=== PATIENT | female | born 1945 | race Caucasian/White ===

== ENCOUNTER 2020-06-01 10:15 | Day surgery (SDC) | payer MEDICARE, OTHER, SELFPAY ==
--- NOTE | 2020-05-31 18:56 | PM.PREOP ---
Pre-operative Note COVID-19 COVID-19 status: Negative Interval Note History & Physical reviewed/Exam performed by Physician: Yes Changes to H&P: No
--- NOTE | 2020-06-01 08:32 | P.OP_ITS ---
Operative Date/Time/Diagnoses Date of procedure: 06/01/20 Time of procedure: 11:45 Procedure & Clinicians Procedure: Preoperative diagnoses: 1. Complex left advanced posterior subcapsular cortical and nuclear sclerotic cataract need for complex surgery with capsular dye. 2. Astigmatism which is to be corrected with a toric intraocular lens implant. 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 Hypertension Postoperative diagnoses: 1. Cataract removal with phacoemulsification with toric posterior chamber intraocular lens implant placed. Procedure: Complex Phacoemulsification with posterior chamber toric intraocular lens implant and capsular dye. Surgeon: Karissa Alvarez MD Complications: None Specimen: None Implant:[id number]+17.5 axis 100 Blood loss: None Anesthesia: Retrobulbar with monitored standby Description of procedure: Patient presents with a complaint of decreased vision due to cataract which is affecting activities of daily living. She has a mature cataract and has problems both with distance and near vision. She is extra risk to presence of pseudoexfoliation and would like astigmatism correction with a distance target. The patient wants surgery to improve vision and astigmatism. The patient was taken to the operating room and proparacaine drops placed. Indelible ink lucio were placed at the 90 and 180 degree meridian. The patient was placed on the operating room table and given IV sedation. A retrobulbar block insert consisting of 6 cc of 2% xylocaine without epinephrine mixed half and half with 0.5% Marcaine with 1 cc of hyaluronidase added is placed between the medial and lateral 1/3 of the inferior orbital rim. The eye is manually massaged for 30 sec, prepped using Betadine solution, and draped in the usual sterile fashion. Temporal approach was made, a 1 mm side-port incision was made 90? from the proposed corneal wound. Phenylephrine 1.5% mixed with 1% xylocaine 0.2 cc was placed into the anterior chamber. An air bubble was placed followed by Visudyne capsular dye. The excess dye was then irrigated from the eye using BSS. Viscoat followed by Healon was then placed. A 2.6 mm clear incision with a 2.6 mm blade was placed at the 170 degree meridian. A 360 degree capsulorrhexis style capsulotomy was then performed with a cystitome needle on a Healon greatly aided by capsular dye. Hydrodelineation and hydrodissection were performed. The phacoemulsification unit is introduced, and sculpting used to groove the central lens. The zonules were slightly weak but hold intact during the entire procedure. The nucleus was very dense. It is then removed in chopping mode. Epi nucleus is removed with epinuclear mode and irrigation aspiration was used to remove the peripheral cortex. The posterior capsule is polished. There was a small amount of subincisional cortex which was left for after intra-ocular lens insertion for safety. The intraocular lens is selected, inspected, power confirmed, and placed in the posterior chamber at the desired meridian of 100? T he pupil was not constricted. As much cortex as possible was safe that was removed but a small amount was left for safety at the 6 o'clock position. The wound was stromally hydrated and tested for leaks, there was none and it was left sutureless. Vigamox 0.1 cc was placed into the anterior chamber. Kenalog 0.2 cc was placed in the inferior subconjunctival space. A drop of antibiotic and was placed and the eye was patched and shielded. The patient was stable and returned to the recovery room in excellent condition. Dictated by: Karissa Alvarez MD Copy to: [facility] Same procedure as scheduled: Yes
[2020-06-01] MEDS: CATARACT EYE COMPOUND (10 DROPS/SYRINGE) 3 DROPS EYE-OP (10:42)
[2020-06-01] MEDS: PROPARACAINE 0.5% OPHTH SOL 2 DROPS EYE-OP ×2 (10:42→12:34)
[2020-06-01 10:46] VITALS: BP 141/89; PULSE 71; RESP 16; TEMP 36.8; O2SAT 98; BMI 26.6
[2020-06-01] MEDS: LIDOCAINE 2% 4 ML, BUPIVACAINE 0.5% (PF) 4 ML, HYALURONIDASE 150 UNIT INJ (12:16)
[2020-06-01] MEDS: CHONDROIDTIN/SOD HYALURONATE 1.05 ML SYRINGE INTRAOCULA (12:30)
[2020-06-01] MEDS: HYALURONATE SODIUM 10 MG/ML SYRINGE INJ (12:31)
[2020-06-01] MEDS: MOXIFLOXACIN INJ 5 MG/ML VIAL EYE-OP (12:31)
[2020-06-01] MEDS: ERYTHROMYCIN OPHTH 1 GM OINT 1 APPLIC EYE-LEFT (12:31)
[2020-06-01] MEDS: TRYPAN BLUE 0.5 ML SYRINGE INJ (12:32)
[2020-06-01] MEDS: TRIAMCINOLONE 50 MG/5 ML VIAL INJ (12:32)
[2020-06-01] MEDS: PHENYLEPHRINE/LIDOCAINE VIAL (OR) 0.2 ML EYE-OP (12:32)
[2020-06-01] MEDS: BALANCED SALT IRRIG SOLN NO.2 500 ML, EPINEPHrine 1 MG IRR (12:32)
[2020-06-01 13:22] VITALS: BP 138/89; PULSE 62; RESP 17; TEMP 36.7; O2SAT 99
== END 2020-06-01 13:24 | disposition home or self-care (01) ==
LOC: OR 10:21
PROVIDERS: PCP Family Medicine; Referring Provider Ophthalmology; Visit Provider Ophthalmology
PROC: (CPT 66982; principal; 2020-06-01 11:45)
DX: H25.812 Combined forms of age-related cataract, left eye (principal); H26.8 Other specified cataract; H52.202 Unspecified astigmatism, left eye; I10 Essential (primary) hypertension
CPT/HCPCS: 66982; J0171; J2704; J3301; J3470; V2787

== ENCOUNTER 2020-06-22 09:24 | Day surgery (SDC) | payer MEDICARE, OTHER, SELFPAY ==
--- NOTE | 2020-06-21 18:38 | PM.PREOP ---
Pre-operative Note COVID-19 COVID-19 status: Negative Interval Note History & Physical reviewed/Exam performed by Physician: Yes Changes to H&P: No
--- NOTE | 2020-06-21 18:39 | PM.OP.1 ---
Operative Date/Time/Diagnoses Date of procedure: 06/22/20 Time of procedure: 10:45 Procedure & Clinicians Procedure: Preoperative diagnoses: 1.Complex Right Nuclear and sclerotic cataract with need for capsular dye. 2. Astigmatism which is to be corrected with a toric intraocular lens implant. 3. Pseudoexfoliation syndrome which increases surgical risk. 4. Glaucoma suspect Postoperative diagnoses: 1. Cataract removal with phacoemulsification with toric posterior chamber intraocular lens implant placed. Capsular dye used. Procedure: Phacoemulsification with posterior chamber toric intraocular lens implant. Surgeon: Karissa Alvarez MD Complications: None Specimen: None Implant: [id number] [place] 090 Blood loss: None Anesthesia: Retrobulbar with monitored standby Description of procedure: Patient presents with a complaint of decreased vision due to cataract which is affecting activities of daily living for both distance and near. The patient wants surgery to improve vision and astigmatism. She understands the extra risk of surgery during the COVID-19 pandemic and wishes to proceed. She has tested negative for active virus. She has pseudoexfoliation syndrome which can loosen zonules and extra care will be taken during the procedure. Capsular dye was used to enhance safety and improved visibility. The patient was taken to the operating room and proparacaine drops placed. Indelible ink lucio were placed at the 90 and 180 degree meridian. The patient was placed on the operating room table and given IV sedation. A retrobulbar block insert consisting of 6 cc of 2% xylocaine without epinephrine mixed half and half with 0.5% Marcaine with 1 cc of hyaluronidase added is placed between the medial and lateral 1/3 of the inferior orbital rim. The eye is manually massaged for 30 sec, prepped using Betadine solution, and draped in the usual sterile fashion. Temporal approach was made, a 1 mm side-port incision was made 90? from the proposed corneal wound. Phenylephrine 1.5% mixed with 1% xylocaine 0.2 cc was placed into the anterior chamber. An air bubble was placed and then the Visudyne capsular dye was placed into the anterior chamber Viscoat followed by Healon was then placed. A 2.6 mm clear incision with a 2.6 mm blade was placed at the 170 degree meridian. A 360 degree capsulorrhexis style capsulotomy was then performed with a cystitome needle on a Healon aided by the capsular dye. The zonules remained intact. Hydrodelineation and hydrodissection were performed. The phacoemulsification unit is introduced, and sculpting used to groove the central lens. It is then removed in chopping mode. Epi nucleus is removed with epinuclear mode and irrigation aspiration was used to remove the peripheral cortex. The posterior capsule is polished. The intraocular lens is selected, inspected, power confirmed, and placed in the posterior chamber at the desired meridian 90?. A pre-loaded eyHance lens was used. The pupil was not constricted. The wound was stromally hydrated and tested for leaks, there was none and it was left sutureless. Vigamox 0.1 cc was placed into the anterior chamber. Kenalog 0.2 cc was placed in the superior subconjunctival space. A drop of antibiotic and was placed and the eye was patched and shielded. The patient was stable and returned to the recovery room in excellent condition. Dictated by: Karissa Alvarez MD Copy to: [facility] Same procedure as scheduled: Yes
[2020-06-22] MEDS: PROPARACAINE 0.5% OPHTH SOL 2 DROPS EYE-OP (10:23)
[2020-06-22 10:25] VITALS: BMI 26.6
[2020-06-22] MEDS: CATARACT EYE COMPOUND (10 DROPS/SYRINGE) 3 DROPS EYE-OP (10:30)
[2020-06-22 10:33] VITALS: BP 162/99; PULSE 75; RESP 12; TEMP 36.9; O2SAT 98
--- NOTE | 2020-06-22 11:19 | SUR.OPER ---
Supine on eye stretcher, head on extension cradle secured with tape. Arms tucked at sides with blanket. Pillow under knees.
[2020-06-22] MEDS: LIDOCAINE 2% 4 ML, BUPIVACAINE 0.5% (PF) 4 ML, HYALURONIDASE 150 UNIT INJ (11:22)
[2020-06-22] MEDS: TRYPAN BLUE 0.5 ML SYRINGE INJ (11:22)
[2020-06-22] MEDS: ERYTHROMYCIN OPHTH 1 GM OINT 1 APPLIC EYE-RIGHT (11:23)
[2020-06-22] MEDS: CHONDROIDTIN/SOD HYALURONATE 1.05 ML SYRINGE INTRAOCULA (11:23)
[2020-06-22] MEDS: TRIAMCINOLONE 50 MG/5 ML VIAL INJ (11:24)
[2020-06-22] MEDS: HYALURONATE SODIUM 10 MG/ML SYRINGE INJ (11:24)
[2020-06-22] MEDS: PHENYLEPHRINE/LIDOCAINE VIAL (OR) 0.2 ML EYE-OP (11:24)
[2020-06-22] MEDS: MOXIFLOXACIN INJ 5 MG/ML VIAL EYE-OP (11:24)
[2020-06-22] MEDS: BALANCED SALT IRRIG SOLN NO.2 500 ML, EPINEPHrine 1 MG IRR (11:25)
[2020-06-22 11:55] VITALS: BP 145/91; PULSE 61; RESP 13; TEMP 36.4; O2SAT 98
== END 2020-06-22 12:07 | disposition home or self-care (01) ==
LOC: OR 09:28
PROVIDERS: PCP Family Medicine; Referring Provider Ophthalmology; Visit Provider Ophthalmology
PROC: (CPT 66982; principal; 2020-06-22 10:45)
DX: H25.811 Combined forms of age-related cataract, right eye (principal); H52.201 Unspecified astigmatism, right eye; H26.8 Other specified cataract; H40.009 Preglaucoma, unspecified, unspecified eye; I10 Essential (primary) hypertension; E78.00 Pure hypercholesterolemia, unspecified
CPT/HCPCS: 66982; J0171; J2704; J3301; J3470; V2787

== ENCOUNTER → 2021-07-19 13:29 | Outpatient (CLI) | payer MEDICARE, OTHER, SELFPAY ==
--- NOTE | 2021-07-19 | DI.CT.S_ITS ---
PROCEDURE: CT SINUS SCREEN WO CON INDICATIONS: Chronic sphenoidal sinusitis TECHNIQUE: Noncontrast 3.0 mm axial images acquired from the frontal sinuses to the mid-sella, with coronal and sagittal reformats. For radiation dose reduction, the following was used: automated exposure control, adjustment of mA and/or kV according to patient size. COMPARISON: [facility], CT, CT SINUS WITHOUT CONTRAST, 05/24/2021, 11:03. FINDINGS: Image quality: Excellent. Maxillary Sinuses: No bony remodeling or destruction. Sinuses are clear. Ethmoid Air Cells: No bony remodeling or destruction. Sinuses are clear. Sphenoid Sinuses: The previously seen prominent opacification of the left sphenoid sinus has resolved. There is mild mucosal thickening now seen within the right sphenoid sinus, as on series 2, image 20. Frontal Sinuses: No bony remodeling or destruction. Sinuses are clear. Ostiomeatal Complexes: Ostiomeatal complexes are patent, yet they are constitutionally narrowed, with bilateral Tania cells. Miscellaneous: Visualized intra-orbital contents are normal. 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 There is moderate S shaped nasal septal deviation. IMPRESSION: No significant active paranasal sinus disease is now seen. The previously seen prominent opacification of the left sphenoid sinus has resolved. Constitutionally narrowed ostiomeatal complexes. Moderate S shaped nasal septal deviation. 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 Dictated by: Luis Baer M.D. on 07/19/2021 at 13:29 Approved by: Luis Baer M.D. on 07/19/2021 at 13:31
== END ==
PROVIDERS: PCP Family Medicine; Referring Provider Otolaryngology; Visit Provider Otolaryngology
DX: J32.3 Chronic sphenoidal sinusitis (principal); R51.9 Headache, unspecified; J34.2 Deviated nasal septum; J34.3 Hypertrophy of nasal turbinates
CPT/HCPCS: 70486

== ENCOUNTER → 2023-02-05 10:56 | Outpatient (CLI) | payer MEDICARE, OTHER, SELFPAY ==
--- NOTE | 2023-02-05 10:59 | DI.RAD.S_ITS ---
PROCEDURE: XR SACROILIAC JOINT MIN 3V INDICATIONS: Sacrococcygeal disorders, not elsewhere classified TECHNIQUE: 3 views of the sacroiliac joints were acquired. COMPARISON: None. FINDINGS: Bones: No bony erosions or ankylosis. No suspicious bony lesions. No acute fractures. Moderate lower lumbar spondylosis. Degenerative changes of the bilateral sacroiliac joints more pronounced on the right. Partially imaged hardware from bilateral hip arthroplasty. Soft tissues: Overlying bowel gas pattern is normal. No suspicious soft tissue densities. IMPRESSION: No radiographic evidence for sacroiliitis. Lower lumbar spondylosis. Degenerative changes of the bilateral sacroiliac joints. Dictated by: Matthew Street M.D. on 02/05/2023 at 18:48 Approved by: Matthew Street M.D. on 02/05/2023 at 18:50
--- NOTE | 2023-02-05 10:59 | DI.RAD.S_ITS ---
PROCEDURE: XR LUMBAR SPINE MIN 4V INDICATIONS: Sacrococcygeal disorders, not elsewhere classified TECHNIQUE: 5 views of the lumbar spine acquired, including flexion and extension views. COMPARISON: None. FINDINGS: Bones: 5 nonrib-bearing vertebrae are present. There is levo scoliosis of the lumbar spine centered at L3-4. No acute compression fractures. Moderate multilevel lumbar spondylosis with degenerative endplate changes, disc space loss, and prominent endplate osteophytes. Moderate mid and lower lumbar facet arthropathy. Soft tissues: Overlying bowel gas pattern is normal. Oval rim calcified density projects over the inferior right renal shadow. Flexion/extension: There is diminished range of motion, with preserved bony alignment. IMPRESSION: Lumbar spine without acute fracture. Levoscoliosis of the lumbar spine with moderate multilevel lumbar spondylosis. Limited range of motion on flexion and extension views with preservation of bony alignment. Dictated by: Matthew Street M.D. on 02/05/2023 at 18:46 Approved by: Matthew Street M.D. on 02/05/2023 at 18:48
== END ==
PROVIDERS: PCP Family Medicine; Referring Provider Family Medicine; Visit Provider Family Medicine
DX: M53.3 Sacrococcygeal disorders, not elsewhere classified (principal); M47.816 Spondylosis without myelopathy or radiculopathy, lumbar region; M41.9 Scoliosis, unspecified
CPT/HCPCS: 72110; 72202

== ENCOUNTER 2025-03-01 15:39 | Emergency (ER) | payer MEDICARE, OTHER, SELFPAY ==
[2025-03-01 16:03] VITALS: BP 107/66; PULSE 83; RESP 16; TEMP 36.3; O2SAT 97; BMI 24.2
[2025-03-01] MEDS: ONDANSETRON 4 MG ODT PO (16:16)
[2025-03-01 16:46] LABS: Add Manual Diff / Slide Review NO; Hematocrit 40.4 % (36-46); Hemoglobin 13.6 g/dL (12.0-16.0); Lymphocytes Absolute Auto 2900 /uL (1100-4500); Mean Corpuscular HGB Conc 33.7 % (30-36); Mean Corpuscular Hemoglobin 28.9 PG (26-34); Mean Corpuscular Volume 85.7 fL (80-100); Platelet Count 378 X10^3/uL (150-400)
[2025-03-01 16:52] LABS: INR 1.1 (0.9-1.3); Prothrombin Time 11.9 SECONDS (9.4-12.5)
[2025-03-01 16:55] LABS: PTT Partial Thromboplastin Tim 32 SECONDS (25.1-36.5)
[2025-03-01 16:56] LABS: Alanine Aminotransferase 17 IU/L (<35); Albumin 4.4 g/dL (3.5-5.0); Albumin Globulin Ratio 1.5 (1.0-2.8); Alkaline Phosphatase 62 U/L (38-126); Blood Urea Nitrogen 12 mg/dL (7-17); Calcium 9.1 mg/dL (8.4-10.2); Carbon Dioxide 26 mmol/L (22-32); Chloride 93 mmol/L (98-107); Estimated Glomerular Filt Rate > 60 mL/min (>60); Globulin 3.0 g/dL (1.7-4.1); Glucose 106 mg/dL (70-99); HEMOLYSIS < 15 (0-50); Potassium 3.5 mmol/L (3.4-5.1); Sodium 128 mmol/L (137-145); Total Protein 7.4 g/dL (6.3-8.2)
--- NOTE | 2025-03-01 17:09 | DI.CT.S_ITS ---
PROCEDURE: CT ABDOMEN PELVIS W CON INDICATIONS: abd pain TECHNIQUE: After the administration of intravenous contrast, axial sections acquired from the lung bases to the pubic symphysis. Coronal and sagittal reformats were performed. For radiation dose reduction, the following was used: automated exposure control, adjustment of mA and/or kV according to patient size. COMPARISON: None. FINDINGS: Image quality: Evaluation of the rectum is mildly limited secondary to beam hardening artifact from hip prostheses. Lower Chest: No significant findings. ABDOMEN: Liver: No solid mass. Circumscribed 2.2 centimeter hypodensity within the right hepatic lobe, which is favored to represent a simple hepatic cyst. Gallbladder: Thick rim calcification of the gallbladder fundus compatible with porcelain gallbladder. Suggestion of partially calcified gallstones. Biliary ducts: No biliary dilation. Pancreas: No ductal dilation. Spleen: Size is within normal limits. Adrenal Glands: No adrenal nodules. Kidneys and Ureters: No hydronephrosis. No solid mass. No complex renal cystic lesion which requires follow up. Stomach and Bowel: Normal colonic caliber. There is segmental mild bowel wall thickening involving the transverse through sigmoid colon. Significant descending and sigmoid colon diverticula without focal inflammatory changes to suggest acute diverticulitis. Peritoneum: No abnormal intraperitoneal fluid. No free air. Ventral Wall: No significant ventral hernia. Abdominal Nodes: No retroperitoneal or mesenteric adenopathy by size criteria. Vessels: Aorta and inferior vena cava are normal in size. Atherosclerotic vascular disease. PELVIS: Pelvic Organs: The uterus is surgically absent. Bladder: No bladder wall thickening, accounting for underdistention. Pelvic Nodes: No enlarged lymph nodes. Miscellaneous: No inguinal hernias are seen. Bones: No aggressive osseous abnormality. Chronic scoliotic curvature and degenerative changes of the spine. IMPRESSION: 1. Segmental transverse through sigmoid colon mild bowel wall thickening, which may represent infectious or inflammatory colitis in the appropriate clinical setting. Significant descending and sigmoid colon diverticulosis without evidence of diverticulitis. 2. Porcelain gallbladder with cholelithiasis. 3. Other chronic findings, as detailed above. Dictated by: Wilmer Bryson M.D. on 03/01/2025 at 18:22 Approved by: Wilmer Bryson M.D. on 03/01/2025 at 18:31
--- NOTE | 2025-03-01 17:10 | ED.GIBLEED ---
HPI - GI Bleed General Chief complaint: GI Bleed Stated complaint: PC ref, GI bleeding since yesterday Time Seen by Provider: 03/01/25 17:05 Mode of arrival: Family Vehicle History of Present Illness HPI Narrative: This is a 79-year-old white female presents to the emergency room with a couple of days of crampy abdominal pain nausea vomiting and loose stool. Patient said today she saw some bright red blood in her stool patient denied any melena or hematemesis. Patient denied any dysuria pyuria or hematuria fevers or chills. Patient describes the pain as crampy intermittent non provoked and self-limited. Related Data Home Medications ?Medication ?Instructions ?Recorded ?Confirmed loperamide 2 mg capsule 2 mg PO DAILY 06/01/20 06/22/20 Previous Rx's ?Medication ?Instructions ?Recorded conjugated estrogens 0.45 mg 0.45 mg PO QDAY #90 tabs 08/17/16 tablet (Premarin) esomeprazole magnesium 40 mg 20 mg (1/2 x 40 mg) PO QDAY #30 08/17/16 capsule,delayed release (Nexium) caps lisinopril 10 1 tab PO QAM #90 tabs 08/17/16 mg-hydrochlorothiazide 12.5 mg tablet ciprofloxacin HCl 500 mg tablet 500 mg PO BID #20 tabs 03/01/25 metronidazole 500 mg tablet 500 mg PO Q12H 10 days #20 tabs 03/01/25 Allergies Allergy/AdvReac Type Severity Reaction Status Date / Time adhesive tape AdvReac Intermediate Blister Verified 03/01/25 16:08 chlorine+ Allergy Severe Diarrhea Uncoded 03/01/25 16:08 Review of Systems Review of Systems Narrative: GENERAL: Denies chills, fatigue, malaise, fever, sweats. HEENT: Denies sinus pain, ear pain, sore throat, difficulty swallowing, dizziness. RESPIRATORY: Denies dyspnea, cough, wheezing, hemoptysis, sputum. CARDIOVASCULAR: Denies chest pain, palpitations, orthopnea, edema, GASTROINTESTINAL: See HPI : Denies dysuria, frequency, incontinence, hematuria, urinary retention. MUSCULOSKELETAL: denies weakness, joint pain, or bony pain SKIN: Denies rash, skin lesions, or other NEUROLOGIC: Denies weakness, headache, numbness, change in speech, confusion, seizures, incoordination. PSYCHIATRIC: No concerning psychosocial issues. 12 point review of systems is negative except for those stated above Patient History Social History household members: spouse Smoking Status: Never smoker alcohol intake: current Smoking Status: Never smoker alcohol intake frequency: a few times a week Exam Narrative Exam Narrative: GENERAL: appears stated age. Well-developed patient, in mild distress. HEAD: Atraumatic. Normocephalic. EYES: Pupils equal round and reactive. Extraocular motions intact. No scleral icterus. No injection or drainage. ENT: Nose without bleeding, purulent drainage. Throat without erythema, tonsillar hypertrophy or exudate. Airway patent. NECK: Trachea midline. Non tender CARDIOVASCULAR: Regular rate and rhythm without murmurs, gallops, or rubs. RESPIRATORY: Clear to auscultation. Breath sounds equal bilaterally. No wheezes, rales, or rhonchi. GASTROINTESTINAL: Abdomen soft, non-tender, nondistended. EXTREMITIES: No edema or joint tenderness. BACK: Nontender without deformity or crepitance. No flank tenderness. NEURO: AOx3. SKIN: No rash or erythema of visible areas Initial Vital Signs Initial Vital Signs: Vital Signs Temperature 97.4 F L 03/01/25 16:03 Pulse Rate 83 03/01/25 16:03 Respiratory Rate 16 03/01/25 16:03 Blood Pressure 107/66 03/01/25 16:03 Pulse Oximetry 97 03/01/25 16:03 Oxygen Delivery Method Room Air 03/01/25 16:03 Course Orders Ordered: ED Orders 03/01/25 16:11 Type and Screen Stat 03/01/25 16:35 Complete Blood Count AUTO DIFF Stat Comprehensive Metabolic Panel Stat PTT Partial Thromboplastin Khurram Stat Prothrombin Time INR Stat 03/01/25 17:09 CT abdomen pelvis w con Stat Ondansetron HCl (Ondansetron 4 Mg/2 Ml Inj) 4 mg IV NOW PRN PRN Reason: Nausea And Vomiting Ondansetron HCl (Ondansetron 4 Mg Odt) 4 mg PO NOW PRN PRN Reason: Nausea And Vomiting Last Admin: 03/01/25 16:16 Dose: 4 mg Documented By: MATT Vital Signs Vital signs: Vital Signs - 8 hr 03/01/25 16:03 Temperature 97.4 F L Pulse Rate 83 Respiratory Rate 16 Blood Pressure 107/66 Pulse Oximetry 97 Oxygen Delivery Method Room Air MDM - GI Bleed Lab Data 03/01/25 16:35 12/08/25 16:35 Labs: Lab Results 03/01/25 Range/Units 16:35 WBC 11.6 H (4.5-11.0) X10^3/uL RBC 4.71 (4.0-5.2) X10^6/uL Hgb 13.6 (12.0-16.0) g/dL Hct 40.4 (36-46) % MCV 85.7 (80-100) fL MCH 28.9 (26-34) PG MCHC 33.7 (30-36) % RDW 14.5 (11.6-14.8) % Plt Count 378 (150-400) X10^3/uL Neut % (Auto) 67.1 (50-75) % Lymph % (Auto) 24.8 L (25-40) % Dolores % (Auto) 6.5 (3-14) % Eos % (Auto) 1.3 L (2-4) % Baso % (Auto) 0.3 (0-2) % Neut # (Auto) 7800 H (4065-3349) /uL Lymph # (Auto) 2900 (9937-4619) /uL Dolores # (Auto) 700 (0-900) /uL Eos # (Auto) 100 (0-450) /uL Baso # (Auto) 0 (0-100) /uL PT 11.9 (9.4-12.5) SECONDS INR 1.1 (0.9-1.3) APTT 32 (25.1-36.5) SECONDS Sodium 128 L (137-145) mmol/L Potassium 3.5 (3.4-5.1) mmol/L Chloride 93 L (98-107) mmol/L Carbon Dioxide 26 (22-32) mmol/L BUN 12 (7-17) mg/dL Creatinine 0.76 (0.52-1.04) mg/dL Estimated GFR > 60 (>60) mL/min BUN/Creatinine Ratio 15.8 (6-22) Glucose 106 H (70-99) mg/dL Calcium 9.1 (8.4-10.2) mg/dL Total Bilirubin 1.1 (0.2-1.3) mg/dL AST 24 (14-36) IU/L ALT 17 (<35) IU/L Alkaline Phosphatase 62 (38-126) U/L Total Protein 7.4 (6.3-8.2) g/dL Albumin 4.4 (3.5-5.0) g/dL Globulin 3.0 (1.7-4.1) g/dL Albumin/Globulin Ratio 1.5 (1.0-2.8) MDM Narrative Medical decision making narrative: Patient had CAT scan of the abdomen and pelvis remarkable for a porcelain gallbladder also thickening of the transverse to sigmoid colon consistent with acute colitis. CBC is remarkable white count 11.6 chemistry was remarkable for a sodium of 128. In the emergency room patient was given IV fluids as well as IV Cipro and Flagyl. At this point the patient can be safely discharged home she will be discharged home on Cipro and Flagyl follow up with her doctor in 2-3 days return to ER if worse. Differential diagnosis colitis diverticulitis inflammatory bowel disease Discharge Plan Departure Patient Disposition: Home Clinical Impression: Acute colitis, Porcelain gallbladder Instructions: DI for Colitis Prescriptions: New ciprofloxacin HCl 500 mg tablet 500 mg PO BID Qty: 20 0RF metronidazole 500 mg tablet 500 mg PO Q12H 10 Days Qty: 20 0RF No Action esomeprazole magnesium [Nexium] 40 MG capsule,delayed release(DR/EC) 20 mg PO QDAY Qty: 30 0RF lisinopril-hydrochlorothiazide 10 MG/12.5 MG tablet 1 tab PO QAM Qty: 90 3RF Premarin 0.45 MG tablet 0.45 mg PO QDAY Qty: 90 3RF loperamide [Imodium] 2 mg Capsule 2 mg PO DAILY Referrals: Tram Dennis MD [Primary Care Provider, Family Practice] - 3-5 days Stand Alone Forms: Patient Portal/API
[2025-03-01 18:50] VITALS: BP 123/78; PULSE 74; O2SAT 97
[2025-03-01 19:00] VITALS: BP 99/68; PULSE 75; RESP 16; O2SAT 93
[2025-03-01] MEDS: metroNIDAZOLE 500 MG/100 ML PIGGYBACK 100 MG IV (19:27)
[2025-03-01] MEDS: CIPROFLOXACIN 400 MG/200 ML PIGGYBACK 200 MG IV (19:27)
[2025-03-01 19:30] VITALS: BP 103/60; PULSE 71; O2SAT 97
[2025-03-01 20:00] VITALS: BP 111/68; PULSE 69; RESP 18; O2SAT 95
== END 2025-03-01 20:31 | disposition home or self-care (01) ==
PROVIDERS: Student in an Organized Health Care Education/Training Program; Emergency Provider Emergency Medicine; PCP Family Medicine
DX: K52.9 Noninfective gastroenteritis and colitis, unspecified (principal); K82.8 Other specified diseases of gallbladder
CPT/HCPCS: 36415; 74177; 80053; 85025; 85610; 85730; 96365; 96368; 99284; J0744; Q9967